=== PATIENT | male | born 1935 | race African-American/Black ===

== ENCOUNTER 2021-06-18 13:40 | Observation (INO) ==
[2021-06-18] MEDS ORDERED: Aspirin 325 MG TABLET PO ONE (14:28)
[2021-06-18 14:35] LABS: Basophils # 0.1 K/mcL (0.0-0.2); Basophils % 0.2 %; Hematocrit 41.5 % (37.5-50.1); Hemoglobin 13.7 g/dL (12.9-16.9); Immature Granulocytes % 1.5 % (0-4); Lymphocytes # 1.9 K/mcL (0.6-4.6); Mean Corpuscular Hemoglobin 31.1 pg (28.0-33.3); Mean Corpuscular Volume 94.1 fL (83.0-100.0); Mean Platelet Volume 10.4 fL (9.4-12.4); Monocytes # 1.5 K/mcL (0.0-1.3); Monocytes % 7.1 %; Neutrophils # 17.2 K/mcL (1.6-8.9); Platelet Count 172 K/mcL (140-400); Red Blood Count 4.41 M/mcL (4.19-5.50); Red Cell Distribution Width 14.8 % (11.5-14.5); Segmented Neutrophils % 82.2 %
[2021-06-18 14:58] LABS: Calcium 8.5 mg/dL (8.6-10.3); Potassium 4.5 mEq/L (3.5-5.1)
[2021-06-18 15:11] LABS: Troponin I 0.04 ng/mL (< 0.04)
[2021-06-18 16:22] LABS: Albumin 3.8 g/dL (3.5-5.7); Albumin/Globulin Ratio 1.7 (1.1-2.2); Bilirubin,Indirect 0.5 mg/dL (0.0-1.0); Bilirubin,Total 0.5 mg/dL (0.3-1.0); Globulin 2.3 g/dL (2.4-3.5); Total Protein 6.1 g/dL (6.4-8.9)
[2021-06-18] MEDS ORDERED: Naloxone 0.4 MG/ML INJ IVP PRN (16:40)
[2021-06-18] MEDS ORDERED: *HR* Heparin 5,000 UNIT/ML VIAL IVP PRN ×2 (16:41)
[2021-06-18] MEDS ORDERED: Perflutren Lipid Microsphere 1.3 ML in 0.9 % Sodium Chloride 8.7 ML IVP PRN (16:42)
[2021-06-18] MEDS ORDERED: Heparin 25,000UNIT/250ML 1/2NS 25,000 UNIT/250 ML IV.SOLN IVC SCH (16:45)
[2021-06-19 00:37] LABS: Basophils % 0.2 %; Eosinophils # 0.1 K/mcL (0.0-0.6); Eosinophils % 0.8 %; Hematocrit 37.4 % (37.5-50.1); Hemoglobin 12.4 g/dL (12.9-16.9); Immature Granulocytes % 1.3 % (0-4); Lymphocytes # 3.3 K/mcL (0.6-4.6); Lymphocytes % 20.5 %; Mean Corpuscular HGB Conc 33.2 g/dL (31.6-35.5); Mean Corpuscular Hemoglobin 31.8 pg (28.0-33.3); Mean Corpuscular Volume 95.9 fL (83.0-100.0); Mean Platelet Volume 10.3 fL (9.4-12.4); Monocytes # 0.9 K/mcL (0.0-1.3); Monocytes % 5.8 %; Neutrophils # 11.3 K/mcL (1.6-8.9); Platelet Count 155 K/mcL (140-400); Red Cell Distribution Width 14.9 % (11.5-14.5); Segmented Neutrophils % 71.4 %; White Blood Count 15.9 K/mcL (4.3-11.1)
[2021-06-19 00:44] LABS: Heparin anti-factor XA UFH 0.83 IU/mL (0.30-0.70)
[2021-06-19 00:45] LABS: INR 0.9; Prothrombin Time 10.4 Seconds (9.4-12.1)
[2021-06-19 01:07] LABS: Calcium 7.8 mg/dL (8.6-10.3); Potassium 4.2 mEq/L (3.5-5.1); Troponin I 0.04 ng/mL (< 0.04)
[2021-06-19] MEDS: Aspirin 81 MG TAB.CHEW PO SCH (08:46)
[2021-06-19] MEDS: 0.9 % Sodium Chloride 1,000 ML IVC SCH ×2 (08:46→20:44)
[2021-06-20] MEDS ORDERED: Regadenoson 0.4 MG/5 ML SYRINGE IVP ONE (05:52)
[2021-06-20] MEDS: 0.9 % Sodium Chloride 1,000 ML IVC SCH ×2 (10:40→22:30)
[2021-06-20 10:47] LABS: Basophils % 0.5 %; Hemoglobin 13.1 g/dL (12.9-16.9); Mean Corpuscular Hemoglobin 31.6 pg (28.0-33.3); Red Blood Count 4.14 M/mcL (4.19-5.50)
[2021-06-20 10:49] LABS: Eosinophils # 0.2 K/mcL (0.0-0.6); Hematocrit 39.6 % (37.5-50.1); Immature Granulocytes % 2.1 % (0-4); Immature Platelets 3.8 % (1.1-6.1); Lymphocytes # 1.7 K/mcL (0.6-4.6); Lymphocytes % 20.3 %; Mean Corpuscular HGB Conc 33.1 g/dL (31.6-35.5); Mean Corpuscular Volume 95.7 fL (83.0-100.0); Mean Platelet Volume 10.4 fL (9.4-12.4); Monocytes # 0.6 K/mcL (0.0-1.3); Monocytes % 7.8 %; Neutrophils # 5.5 K/mcL (1.6-8.9); Platelet Count 125 K/mcL (140-400); Red Cell Distribution Width 14.8 % (11.5-14.5); Segmented Neutrophils % 67.3 %; White Blood Count 8.2 K/mcL (4.3-11.1)
[2021-06-20 11:09] LABS: Calcium 7.8 mg/dL (8.6-10.3); Potassium 4.5 mEq/L (3.5-5.1)
[2021-06-20] MEDS: Aspirin 81 MG TAB.CHEW PO SCH (11:30)
[2021-06-20] MEDS: *HR* Heparin 5,000 UNIT/ML VIAL SQ SCH (16:54)
[2021-06-20] MEDS ORDERED: *HR* LORazepam 2 MG/ML VIAL IVP ONE (18:08)
[2021-06-21 00:25] LABS: Basophils % 0.3 %; Eosinophils # 0.2 K/mcL (0.0-0.6); Eosinophils % 2.3 %; Hematocrit 39.3 % (37.5-50.1); Hemoglobin 13.1 g/dL (12.9-16.9); Immature Granulocytes % 1.6 % (0-4); Lymphocytes # 1.9 K/mcL (0.6-4.6); Lymphocytes % 27.2 %; Mean Corpuscular HGB Conc 33.3 g/dL (31.6-35.5); Mean Corpuscular Hemoglobin 31.5 pg (28.0-33.3); Mean Corpuscular Volume 94.5 fL (83.0-100.0); Monocytes # 0.6 K/mcL (0.0-1.3); Monocytes % 8.6 %; Neutrophils # 4.1 K/mcL (1.6-8.9); Platelet Count 152 K/mcL (140-400); Red Blood Count 4.16 M/mcL (4.19-5.50); Red Cell Distribution Width 14.6 % (11.5-14.5); White Blood Count 6.8 K/mcL (4.3-11.1)
[2021-06-21 00:46] LABS: BUN/Creatinine Ratio 20 (6-26); Blood Urea Nitrogen 25 mg/dL (8-23); Carbon Dioxide 21 mEq/L (23-29); Chloride 109 mEq/L (98-107); Glucose 94 mg/dL (70-105); Osmolality,Calculated 290 (280-300); Potassium 4.4 mEq/L (3.5-5.1); Sodium 138 mEq/L (136-145); eGFR For African Americans > 60 (> 60); eGFR For Non-African Americans 54 (> 60)
[2021-06-21] MEDS: *HR* Heparin 5,000 UNIT/ML VIAL SQ SCH ×2 (05:24→17:45)
[2021-06-21] MEDS: Aspirin 81 MG TAB.CHEW PO SCH (08:06)
[2021-06-21] MEDS ORDERED: Metoprolol XL (24 HR) Succ 25 MG TAB.ER.24H PO SCH (13:15)
[2021-06-21] MEDS: 0.9 % Sodium Chloride 1,000 ML IVC SCH (13:22)
[2021-06-21] MEDS: hydrOXYzine pamoate 25 MG CAPSULE PO PRN (14:40)
[2021-06-21] MEDS: amLODIPine 5 MG TABLET PO SCH (14:52)
[2021-06-21] MEDS ORDERED: ALPRAZolam 0.5 MG TABLET PO ONE (20:10)
[2021-06-22] MEDS: 0.9 % Sodium Chloride 1,000 ML IVC SCH (02:33)
[2021-06-22 03:56] LABS: BUN/Creatinine Ratio 16 (6-26); Blood Urea Nitrogen 21 mg/dL (8-23); Carbon Dioxide 23 mEq/L (23-29); Chloride 110 mEq/L (98-107); Glucose 94 mg/dL (70-105); Osmolality,Calculated 291 (280-300); Sodium 139 mEq/L (136-145); eGFR For African Americans > 60 (> 60); eGFR For Non-African Americans 51 (> 60)
[2021-06-22] MEDS: *HR* Heparin 5,000 UNIT/ML VIAL SQ SCH (05:57)
[2021-06-22] MEDS: amLODIPine 5 MG TABLET PO SCH (08:57)
[2021-06-22] MEDS: Aspirin 81 MG TAB.CHEW PO SCH (08:57)
[2021-06-22] MEDS: hydrOXYzine pamoate 25 MG CAPSULE PO PRN (08:58)
[2021-06-22 11:38] VITALS: TEMP 97.6; O2SAT 95
[2021-06-22 11:39] VITALS: BP 212/81; PULSE 82
== END 2021-06-22 17:24 | disposition home or self-care (01) ==
LOC: 2ANU 13:40 → EMEROOARM 13:40 → SUATTDRO 16:01 → 2ANU 17:53
PROVIDERS: ADMIT Student in an Organized Health Care Education/Training Program; ATTEND Internal Medicine

== ENCOUNTER 2021-07-05 17:09 | Observation (INO) ==
[2021-07-05 17:57] LABS: Basophils # 0.1 K/mcL (0.0-0.2); Basophils % 1.1 %; Eosinophils % 0.4 %; Hematocrit 40.6 % (37.5-50.1); Hemoglobin 13.4 g/dL (12.9-16.9); Immature Granulocytes % 5.2 % (0-4); Lymphocytes % 12.4 %; Mean Corpuscular Hemoglobin 31.7 pg (28.0-33.3); Mean Platelet Volume 9.9 fL (9.4-12.4); Monocytes # 0.5 K/mcL (0.0-1.3); Monocytes % 6.4 %; Neutrophils # 6.2 K/mcL (1.6-8.9); Platelet Count 245 K/mcL (140-400); Red Blood Count 4.23 M/mcL (4.19-5.50); Segmented Neutrophils % 74.5 %; White Blood Count 8.3 K/mcL (4.3-11.1)
[2021-07-05 18:19] LABS: Calcium 8.7 mg/dL (8.6-10.3); Potassium 4.8 mEq/L (3.5-5.1); Troponin I 0.03 ng/mL (< 0.04)
[2021-07-05 18:31] LABS: Large Platelets Present (Not Present); Reactive Lymphocytes Present (Not Present)
[2021-07-05] MEDS ORDERED: *HR* HYDROcodone/Acet 5/325 mg TABLET PO PRN (19:50)
[2021-07-05] MEDS ORDERED: Melatonin 3 MG TABLET PO PRN (19:50)
[2021-07-05] MEDS ORDERED: *HR* OxyCODONE Immed Rel 5 MG TABLET PO PRN (19:50)
[2021-07-05] MEDS ORDERED: Ondansetron 4 MG/2 ML VIAL IVP PRN (19:50)
[2021-07-05] MEDS ORDERED: Acetaminophen 325 MG TABLET PO PRN (19:50)
[2021-07-05] MEDS ORDERED: Naloxone 0.4 MG/ML INJ IVP PRN (19:50)
[2021-07-05] MEDS ORDERED: Furosemide 20 MG/2 ML VIAL IVP ONE (19:58)
[2021-07-05] MEDS ORDERED: Perflutren Lipid Microsphere 1.3 ML in 0.9 % Sodium Chloride 8.7 ML IVP PRN (20:00)
[2021-07-05 22:53] LABS: Bilirubin,Urine Negative (Negative); Blood,Urine Negative (Negative); Clarity,Urine Clear (Clear); Color,Urine Colorless (Yellow); Glucose,Urine (UA) Normal (Normal); Ketones,Urine Negative (Negative); Leukocyte Esterase,Urine Negative (Negative); Nitrite,Urine Negative (Negative); PH,Urine 6.5 pH Units (5.0-8.0); Protein,Urine Negative (Neg-Trace); Specific Gravity,Urine 1.008 (1.010-1.025); Urobilinogen,Urine Normal (Normal)
[2021-07-05 23:04] LABS: Protein/Creatinine Ratio,Urine 0.17 mg/mg (0.00-0.20); Sodium, Urine 111.2 mEq/L
[2021-07-06 02:10] LABS: Basophils # 0.1 K/mcL (0.0-0.2); Basophils % 0.7 %; Eosinophils # 0.1 K/mcL (0.0-0.6); Eosinophils % 1.2 %; Hematocrit 34.8 % (37.5-50.1); Hemoglobin 11.9 g/dL (12.9-16.9); Immature Granulocytes % 3.7 % (0-4); Lymphocytes # 2.1 K/mcL (0.6-4.6); Mean Corpuscular HGB Conc 34.2 g/dL (31.6-35.5); Mean Corpuscular Hemoglobin 32.2 pg (28.0-33.3); Mean Corpuscular Volume 94.3 fL (83.0-100.0); Mean Platelet Volume 10.1 fL (9.4-12.4); Monocytes # 0.8 K/mcL (0.0-1.3); Monocytes % 9.5 %; Neutrophils # 5.3 K/mcL (1.6-8.9); Nucleated Red Blood Cells 0.2 /100 WBC (0); Platelet Count 218 K/mcL (140-400); Red Blood Count 3.69 M/mcL (4.19-5.50); Segmented Neutrophils % 60.9 %; White Blood Count 8.7 K/mcL (4.3-11.1)
[2021-07-06 02:19] LABS: Prothrombin Time 10.6 Seconds (9.4-12.1)
[2021-07-06 02:34] LABS: Calcium 8.4 mg/dL (8.6-10.3); Potassium 4.2 mEq/L (3.5-5.1)
[2021-07-06] MEDS: hydrOXYzine pamoate 25 MG CAPSULE PO PRN ×3 (04:27→23:25)
[2021-07-06] MEDS: Aspirin 81 MG TAB.CHEW PO SCH (09:53)
[2021-07-06] MEDS: amLODIPine 5 MG TABLET PO SCH (09:53)
[2021-07-06 11:34] LABS: Uric Acid 11.8 mg/dL (2.3-7.6)
[2021-07-06] MEDS: Albuterol 2.5 MG/3 ML NEBULIZER IH PRN (17:05)
[2021-07-06 18:44] VITALS: TEMP 97.7
[2021-07-07] MEDS: Albuterol 2.5 MG/3 ML NEBULIZER IH PRN (05:42)
[2021-07-07 05:59] VITALS: BP 145/62; PULSE 51; O2SAT 97
[2021-07-07] MEDS: hydrOXYzine pamoate 25 MG CAPSULE PO PRN (06:13)
[2021-07-07] MEDS: amLODIPine 5 MG TABLET PO SCH (09:00)
[2021-07-07] MEDS: Aspirin 81 MG TAB.CHEW PO SCH (09:00)
== END 2021-07-07 09:48 | disposition home or self-care (01) ==
LOC: EMEROOARM 17:09 → 3BNU 17:09 → SUATTDRO 19:36 → 3BNU 19:55
PROVIDERS: ADMIT Family Medicine; ATTEND Registered Nurse